=== PATIENT | male | born 1965 | race Asian ===

== ENCOUNTER 2019-01-29 02:19 | Emergency (ER) | payer SELFPAY ==
--- NOTE | 2019-01-29 02:39 | Emergency Department Report ---
ED General Adult HPI - General Stated complaint: WEAKNESS Time Seen by Provider: 01/29/19 02:27 Source: patient, EMS Mode of arrival: Ambulatory Limitations: No Limitations - History of Present Illness Initial comments: Mr. Carson is a 53-year-old gentleman with history of hypertension and back pain who presents with generalized malaise for the past 2 hours. He explained t hat he had a coughing fit. His girlfriend became very upset with him because of his cough. Girlfriend abandoned him at the local [employer]. He hasd had transient chest pain in the past few weeks. No pain currently. He admits to marijuana use. Denies alcohol use. No new pain otherwise. He has chronic back pain. History of back surgery. He does not take any medication. He lives in [facility]. He is concerned about getting home. He arrived via EMS. -: Gradual, hour(s) (2) Consistency: now resolved (no pain currently just generalized malaise) Improves with: none Worsens with: none Associated Symptoms: chest pain (for the past several weeks none currently), cough - Related Data Allergies Allergy/AdvReac Type Severity Reaction Status Date / Time No Known Allergies Allergy Unverified 01/29/19 02:40 ED Review of Systems ROS: Stated complaint: WEAKNESS Other details as noted in HPI Constitutional: malaise Respiratory: cough Cardiovascular: chest pain Gastrointestinal: denies: abdominal pain, nausea, vomiting Neurological: denies: headache ED Past Medical Hx - Past Medical History Previous Medical History?: Yes Hx Hypertension: Yes - Surgical History Additional Surgical History: Back surgery - Social History Substance Use Type: Marijuana ED Physical Exam - General General appearance: alert, in no apparent distress - Head Head exam: Present: atraumatic, normocephalic - Eye Eye exam: Present: normal appearance - ENT ENT exam: Present: mucous membranes moist - Neck Neck exam: Present: normal inspection, full ROM - Respiratory Respiratory exam: Present: normal lung sounds bilaterally. Absent: respiratory distress, wheezes, rales, rhonchi - Cardiovascular Cardiovascular Exam: Present: regular rate, normal rhythm, normal heart sounds. Absent: systolic murmur, diastolic murmur, rubs, gallop - GI/Abdominal GI/Abdominal exam: Present: soft, normal bowel sounds. Absent: distended, tenderness, guarding, rebound - Extremities Exam Extremities exam: Present: normal inspection - Back Exam Back exam: Present: normal inspection - Neurological Exam Neurological exam: Present: alert, oriented X3 - Psychiatric Psychiatric exam: Present: normal affect, normal mood - Skin Skin exam: Present: warm, dry, intact, normal color. Absent: rash ED Course Vital Signs 01/29/19 02:40 Temperature 97.5 F L Pulse Rate 76 Respiratory 18 Rate Blood Pressure 137/97 [Right] O2 Sat by Pulse 91 Oximetry ED Medical Decision Making - Lab Data Result diagrams: 01/29/19 02:53 01/29/19 02:53 - EKG Data EKG shows normal: sinus rhythm, axis, intervals, QRS complexes, ST-T waves - EKG Data Interpretation: no acute changes, normal EKG - Radiology Data Radiology results: report reviewed Chest radiograph: No acute process - Medical Decision Making Mr. Carson presents with generalized malaise for several hours and intermittent chest pain for the past several weeks. Reported cough. EKG without acute changes. I do not suspect acute coronary syndrome from this presentation. Chest radiograph ruled out pneumonia. CBC chemistry unremarkable. Mr. Carson is stable for discharge home. Critical care attestation.: If time is entered above; I have spent that time in minutes in the direct care of this critically ill patient, excluding procedure time. ED Disposition Clinical Impression: Cough, Malaise, Chest pain Disposition: DC-01 TO HOME OR SELFCARE Is pt being admited?: No Does the pt Need Aspirin: No Condition: Stable Instructions: Chest Pain (ED) Referrals: PRIMARY CARE, [Primary Care Provider] - 3-5 Days [facility] [Outside] - 3-5 Days
--- NOTE | 2019-01-29 03:05 | XRay Report ---
CHEST 1 VIEW INDICATION / CLINICAL INFORMATION: cough. COMPARISON: None available. FINDINGS: SUPPORT DEVICES: None. HEART / MEDIASTINUM: No significant abnormality. LUNGS / PLEURA: No significant pulmonary or pleural abnormality. No pneumothorax. ADDITIONAL FINDINGS: No significant additional findings. IMPRESSION: 1. No acute findings. Signer Name: Moncho Hurtado MD Signed: 01/29/2019 3:01 AM Workstation Name: [id number]
[2019-01-29 03:12] LABS: Basophils # (Auto) 0.1 K/mm3 (0.0-0.1); Basophils % (Auto) 0.8 % (0.0-1.8); Eosinophils # (Auto) 0.2 K/mm3 (0.0-0.4); Eosinophils % (Auto) 1.9 % (0.0-4.3); Hematocrit 50.2 % (35.5-45.6); Hemoglobin 17.2 gm/dl (11.8-15.2); Lymphocytes # (Auto) 2.2 K/mm3 (1.2-5.4); Lymphocytes % (Auto) 22.2 % (13.4-35.0); Mean Corpuscular HGB Conc 34 % (32-34); Mean Corpuscular Volume 86 fl (84-94); Monocytes % (Auto) 9.9 % (0.0-7.3); Platelet Count 279 K/mm3 (140-440); Red Blood Count 5.86 M/mm3 (3.65-5.03); Red Cell Distribution Width 14.2 % (13.2-15.2)
[2019-01-29 03:38] LABS: Alanine Aminotransferase 13 units/L (7-56); BUN/Creatinine Ratio 19; Blood Urea Nitrogen 17 mg/dL (9-20); Calcium 9.1 mg/dL (8.4-10.2); Hemolysis Index 32
[2019-01-29 06:35] VITALS: BP 120/82
== END 2019-01-29 04:55 | disposition home or self-care (01) ==
LOC: ED 02:19
DX: R53.81 Other malaise (principal); R05 Cough; R07.89 Other chest pain; I10 Essential (primary) hypertension; F12.10 Cannabis abuse, uncomplicated; Z98.890 Other specified postprocedural states
CPT/HCPCS: 36415; 71045; 80053; 85025; 93005; 93010